=== PATIENT | male | born 1995 | race African-American/Black ===

== ENCOUNTER 2020-11-01 17:19 | Emergency (ER) | payer OTHER, SELFPAY ==
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
[2020-11-01 17:31] VITALS: BP 163/93; PULSE 94; RESP 18; TEMP 36.6; O2SAT 100
--- NOTE | 2020-11-01 17:50 | PC.NURSE ---
unable to put correct pharmacy info into [employer]. pt uses [facility] in [place], [place]
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
[2020-11-01 19:26] VITALS: BP 141/74; PULSE 90; RESP 16; O2SAT 100
== END 2020-11-01 19:28 | disposition home or self-care (01) ==
PROVIDERS: Emergency Provider General Practice
DX: S06.0X0A Concussion without loss of consciousness, initial encounter (principal); S16.1XXA Strain of muscle, fascia and tendon at neck level, initial encounter; S80.812A Abrasion, left lower leg, initial encounter; S80.811A Abrasion, right lower leg, initial encounter; V49.50XA Passenger injured in collision with unspecified motor vehicles in traffic accident, initial encounter
CPT/HCPCS: 70450; 72125; 99284; L0140